=== PATIENT | female | born 1965 | race Caucasian/White ===

== ENCOUNTER 2023-02-22 16:47 | Outpatient (CLI) | payer OTHER, SELFPAY ==
[2023-02-22 23:18] LABS: TSH With Reflex to FT4* 0.466 uIU/mL (0.270-4.200)
== END 2023-02-22 16:48 | disposition home or self-care (01) ==
LOC: KYNREF 16:48
PROVIDERS: PCP Nurse Practitioner Family; Visit Provider Nurse Practitioner Family
DX: R00.2 Palpitations (principal)
CPT/HCPCS: 84443

== ENCOUNTER 2024-08-21 14:22 | Outpatient (CLI) | payer OTHER, SELFPAY ==
--- OUTSIDE RECORDS SUMMARY | 2024-08-21 14:25 | XMS_ITS | Clinical Summary ---
Author Organization [facility] Address [place], [place] [address] Care Team Providers Care Chemical Operator Name Role Phone Valerie Crain NP Primary Care Provider [phone] Allergies Active Allergy Reactions Criticality Noted Date Comments Sulfa (Sulfonamide Antibiotics) Hives 04/29 Medications Medication Sig Dispensed Refills Start Date End Date Status amLODIPine (NORVASC) 5 mg tablet Take 5 mg by mouth once daily. 01/03/2023 Active gabapentin (NEURONTIN) 300 mg capsule Take 300 mg by mouth three times daily. 01/03/2023 Active oxygen-air delivery systems (HOME OXYGEN)Indications:C OPD exacerbation (HC) Oxygen for home use. Liters per minute: 2L per nasal cannula. Frequency of use: With activity;. Length of need: 99 Months. 1 Each 02/18/2023 Active benzonatate (TESSALON) 200 mg capsuleIndications:C OPD exacerbation (HC) Take 1 Capsule (200 mg) by mouth 3 times daily if needed for Cough. 15 Capsule 02/18/2023 Active FLUoxetine (PROZAC) 20 mg capsuleIndications:C OPD exacerbation (HC) Take 1 Capsule (20 mg) by mouth every morning. 30 Capsule 02/19/2023 Active nicotine 2 mg lozengeIndications:yMrna otto Place 2 Lozenges (4 mg) in mouth, between cheek & gum every hour while awake as needed for Nicotine Craving. 72 Each 02/18/2023 Active ipratropium-albutero L (COMBIVENT RESPIMAT) (20-100 mcg each actuation) mist inhalerIndications:C OPD exacerbation (HC) Inhale 1 Puff by mouth four times daily. 4 g 02/18/2023 Active albuterol HFA (PRO-AIR; VENTOLIN; PROVENTIL) 90 mcg/actuation inhalerIndications:C OPD exacerbation (HC) Inhale 2 Puffs by mouth 4 times daily if needed for Shortness Of Breath. 18 g 02/18/2023 Active Mucus DM 30-600 mg TABLET EXTENDED RELEASE 12 HR 1 Tablet. 02/18/2023 Active oxyCODONE (ROXICODONE) 5 mg immediate release tabletIndications:Ab scess Take 1 Tablet (5 mg) by mouth every 6 hours if needed for Pain. 8 Tablet 07/31/2023 Active Active Problems Problem Noted Date Diagnosed Date Depression 02/18/2023 Tobacco use 02/18/2023 Alcohol abuse 02/18/2023 COPD exacerbation 02/14/2023 Hypoxemia 02/14/2023 Dental abscess 02/14/2023 COPD (chronic obstructive pulmonary disease) Smoker 04/21/2012 Major depression, recurrent 04/21/2012 Overview (05/17/2012): - restarted on wellbutrin XL 150 mg and prozac 20 mg daily on 04/23/12 Immunizations Name Administration Dates Next Due Influenza, IIV3 (Age >=3 years) 08/23/2013 Influenza, IIV4 08/25/2016,08/28/2015 Tdap 09/25/2009 Family History Medical History Relation Name Comments Cancer Brother brain tumor Diabetes Father Heart Disease Father Hypertension Father Cancer-breast Maternal Grandmother Diabetes Maternal Grandmother Diabetes Mother Hypertension Sister Relation Name Status Comments Brother Father Maternal Grandmother Mother Sister Social History Tobacco Use Types Packs/Day Years Used Date Smoking Tobacco: Every Day Cigarettes 0.5 46.5 Started: 02/14/1978 Smokeless Tobacco: Never Tobacco Cessation:Ready to Q uit: No; Counseling Given: Yes Comments:declined info Alcohol Use Standard Drinks/Week Comments Yes 21 (1 standard drink = 0.6 oz pu re alcohol) Social Connections Answer Date Recorded Frequency of Communication with Friends and Fami ly Not on file 03/07/2023 Sex and Gender Information Value Date Recorded Sex Assigned at Not on file Gender Identity Not on file Sexual Orientation Not on file Obstetrics History Para Term AB IAB SAB Ectopic Multiple Livin g Live Births 1 1 1 1 Date Outcome GA Total Labor Labor/2nd/3rd Weight Sex Type Anes PTL Laura A1 A5 Name Clin 1990 Para M Vag-S pont Living Last Filed Vital Signs Vital Sign Reading Time Taken Comments Blood Pressure 130/72 07/31/2023 2:00 PM CDT Pulse 99 07/31/2023 2:00 PM CDT Temperature 37.2 ??C (99 ??F) 07/31/2023 12:10 PM CDT Respiratory Rate 18 07/31/2023 2:00 PM CDT Oxygen Saturation 91% 07/31/2023 2:00 PM CDT Inhaled Oxygen Concentration - - Weight 92.1 kg (203 lb) 07/31/2023 12:10 PM CDT Height 167.6 cm (5' 6) 07/31/2023 12:10 PM CDT Body Mass Index 32.77 07/31/2023 12:10 PM CDT Plan of Treatment Health Maintenance Due Date Last Done Comments Hepatitis C screening for age 18-79 1981 Colonoscopy through age 75 2008 Zoster (shingles) series for age 50+ (1 of 2) 2013 Mammogram for age 45-75 08/26/2017 08/26/2016, 12/20 BMI (ht and wt on same day) for age 18+ 07/18/2018 07/18/2017, 11/02/2016, 10/17/2016, Additional history exists Depression screening for age 12+ 07/18/2018 07/18/2017, 04/08/2016 Pap test for age 21-65 08/25/2019 08/25/2016, 2011 Tetanus booster 09/25/2019 09/25/2009 Lipids for age 45-75 08/25/2021 08/25/2016, 12/13/19 15 COVID-19 vaccine series ( season) 2024 09/07/2021, 08/10/2021 Influenza for age 50-64 07/29/2024 08/25/20 16, 08/28/2015, 08/23/2013 Tdap Completed 09/25/2009 HIV for age 15-65 Completed 07/18/2017 Pneumococcal series for age 6-64 Aged Out No longer eligible based on patient's age to complete this topic Procedures Procedure Name Priority Date/Time Associated Diagnosis Comments ANTI HIV 1/2 Routine 07/18/2017 2:37 PM CDT Screen for STD (sexually transmitted disease) XR MAMMO BILAT SCREEN FFDM (IA) Routine 08/26/2016 4:03 PM CDT Routine general medical examination at a health care facility MECHANICAL SERVICE SPECIALIST THIN PREP PAP SCREEN IMAGED Routine 08/25/2016 9:30 AM CDT Pap smear for cervical cancer screening LIPID PANEL Routine 08/25/2016 9:29 AM CDT Routine general medical examination at a health care facility from Last 3 Months or Most Recently Relevant to Health Maintenance Results * ANTI HIV 1/2 (07/18/2017 2:37 PM CDT) HIV-1/HIV-2 ANTIBODY Non-Reacti ve Non-Reacti ve 07/18/2017 7:34 PM CDT [facility] Blood BLOOD SPECIMEN / Unknown Venipuncture / Unknown 07/18/2017 2:37 PM CDT 07/18/2017 2:37 PM CDT N[facility]ative [facility] - 07/18/2017 7:34 PM CDT HIV-1 p24 and HIV-1/HIV-2 Ab not detected Soniya Grajeda CNM SEND OUTS [facility] [address] [place] [address], [place] * XR MAMMO BILAT SCREEN FFDM (08/26/2016 4:03 PM CDT) Anatomical Region Laterality Modality BREASTS, Breast Left, Breast Right Bilateral Other 08/26/2016 4:03 PM CDT Impressions 08/26/2016 4:07 PM CDT IMPRESSION: BI-RADS CATEGORY: 1 - ??NEGATIVE. RECOMMENDED FOLLOW-UP: Annual Mammography. Exam results letter mailed to patient. Narrative 08/26/2016 4:07 PM CDT SCREENING MAMMOGRAM, BILATERAL, DIGITAL w/CAD - 08/26/2016 4:03 PM. BREAST SYMPTOMS: No current breast complaints. COMPARISON: ??12/20/14, 09/30/09 BREAST DENSITY: Scattered fibroglandular densities. COMMENTS: No findings of suspicion for malignancy. ? Procedure Note Unknown, Doctor - 08/26/2016 SCREENING MAMMOGRAM, BILATERAL, DIGITAL w/CAD - 08/26/2016 4:03 PM. BREAST SYMPTOMS: No current breast complaints. COMPARISON: 12/20/14, 09/30/09 BREAST DENSITY: Scattered fibroglandular densities. COMMENTS: No findings of suspicion for malignancy. IMPRESSION: IMPRESSION: BI-RADS CATEGORY: 1 - NEGATIVE. RECOMMENDED FOLLOW-UP: Annual Mammography. Exam results letter mailed to patient. Soniya Grajeda CNM MAMMO * MECHANICAL SERVICE SPECIALIST THIN PREP PAP SCREEN IMAGED (08/25/2016 9:30 AM CDT) MECHANICAL SERVICE SPECIALIST CYTOLOGY See Anatomic Pathology case 08/26/2016 10:00 AM CDT [facility] Other (Cervical) Non-Blood / Unknown 08/25/2016 9:30 AM CDT 08/25/2016 9:30 AM CDT Soniya Grajeda CNM PATHOLOGY/CYTOLOGY [facility] [address] [place] [address], [place] * LIPID PANEL (08/25/2016 9:29 AM CDT) CHOLESTEROL,TOTAL 195 100 - 199 mg/dL 08/25/2016 1:36 PM CDT [facility] [employer] [facility] TRIGLYCERIDES 73 <150 mg/dL 08/25/2016 1:36 PM CDT [facility] HDL CHOLESTEROL 62 >40 mg/dL 08/25/2016 1:36 PM CDT [facility] NON-HDL CHOLESTEROL 133 <145 mg/dl 08/25/2016 1:36 PM CDT [facility] CHOL/HDL RATIO 3.15 <4.50 08/25/2016 1:36 PM CDT [facility] LDL CHOLESTEROL 118 <=130 mg/dL 08/25/2016 1:36 PM CDT [facility] PATIENT STATUS FASTING 08/25/2016 1:36 PM CDT [facility] Blood BLOOD SPECIMEN / Unknown Venipuncture / Unknown 08/25/2016 9:29 AM CDT 08/25/2016 9:29 AM CDT Soniya Zamora Haqq CNM CHEMISTRY [facility] 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
== END 2024-08-21 14:23 | disposition home or self-care (01) ==
PROVIDERS: PCP Nurse Practitioner Family; Visit Provider Nurse Practitioner Family
DX: I10 Essential (primary) hypertension (principal); R06.00 Dyspnea, unspecified; Z13.220 Encounter for screening for lipoid disorders
CPT/HCPCS: 80053; 80061; 83880; 85025

== ENCOUNTER 2025-08-20 18:00 | Outpatient (CLI) | payer OTHER, SELFPAY | END 2025-08-20 18:01 | disposition home or self-care (01) | PROVIDERS: PCP Nurse Practitioner Family; Visit Provider Nurse Practitioner Family | DX: I10 Essential (primary) hypertension (principal); Z13.0 Encounter for screening for diseases of the blood and blood-forming organs and certain disorders involving the immune mechanism | CPT/HCPCS: 80048; 85025 ==